=== PATIENT | female | born 1930 | race Two or more races ===

== ENCOUNTER 2017-02-27 15:24 | Emergency (ER) | payer MEDICARE, OTHER ==
[2017-02-27] MEDS: KETOROLAC 30 MG INJ IM (16:11)
[2017-02-27] MEDS: LORAZEPAM 0.5 MG TAB PO (16:11)
== END 2017-02-27 17:46 | disposition home or self-care (01) ==
LOC: E/R 15:24
DX: M54.42 Lumbago with sciatica, left side (principal); F41.9 Anxiety disorder, unspecified; E66.9 Obesity, unspecified; I10 Essential (primary) hypertension; E03.9 Hypothyroidism, unspecified
CPT/HCPCS: 93005; 93970; 96372; 99285-25